=== PATIENT | female | born 1970 | race Caucasian/White ===

== ENCOUNTER 2018-08-02 15:35 | Inpatient (IN) | payer MEDICAID ==
[~2018-08-02] VITALS: Ht 165.1 cm; Wt 53.4 kg
[2018-08-02] MEDS ORDERED: LORazepam 2 MG/ML, 1ML IVPush ONE (16:00)
[2018-08-02] MEDS ORDERED: LORazepam 2 MG/ML, 1ML ONE (16:00)
[2018-08-02 16:13] LABS: BASOPHILS # (AUTO) 0.03 x10^3/uL (0-0.1); BASOPHILS % (AUTO) 0 % (0-1); EOSINOPHILS # (AUTO) 0.09 x10^3/uL (0-0.4); EOSINOPHILS % (AUTO) 1 % (1-7); LYMPHOCYTES # (AUTO) 3.37 x10^3/uL (1-3.4); LYMPHOCYTES % (AUTO) 46 % (22-44); MD NO; MEAN CORPUSCULAR HEMOGLOBIN 31.6 pg (27.0-34.8); MEAN CORPUSCULAR HGB CONC 33.4 g/dL (32.4-35.8); MEAN CORPUSCULAR VOLUME 94.5 fL (80-100); MONOCYTES # (AUTO) 0.43 x10^3/uL (0.2-0.8); MONOCYTES % (AUTO) 6 % (2-9); NEUTROPHILS # (AUTO) 3.34 x10^3/uL (1.8-6.8); NEUTROPHILS % (AUTO) 46 % (42-75); PLATELET COUNT 214 x10^3/uL (130-400); RED BLOOD COUNT 4.81 x10^6/uL (3.82-5.3); RED CELL DISTRIBUTION WIDTH 12.7 % (9.6-15.2)
[2018-08-02 16:23] LABS: ALANINE AMINOTRANSFERASE 28 U/L (12-78); ALBUMIN 4.3 g/dL (3.4-5.0); ANION GAP 9 mmol/L (5-15); CALCIUM 9.3 mg/dL (8.5-10.1); CHLORIDE 106 mmol/L (98-107); CREATININE 1.01 mg/dL (0.55-1.02)
[2018-08-02 16:27] LABS: ALKALINE PHOSPHATASE 58 U/L (45-117); BILIRUBIN,TOTAL 0.3 mg/dL (0.2-1.0); TOTAL PROTEIN 8.3 g/dL (6.4-8.2); TROPONIN I < 0.015 ng/mL (0.000-0.045)
[2018-08-02] MEDS ORDERED: ENALAPRILAT 1.25 MG/ML, 2ML IV ONE (17:00)
[2018-08-02] MEDS ORDERED: HYDROmorphone 2 MG/ML, 1ML IV ONE (17:00)
[2018-08-02] MEDS ORDERED: ENALAPRILAT 1.25 MG/ML, 1ML ONE (17:17)
[2018-08-02] MEDS ORDERED: HYDROmorphone 2 MG/ML, 1ML ONE ×2 (17:17→18:40)
--- NOTE | 2018-08-02 17:24 | NUR ---
Provided medication per EMAR for pain. Pt transported on gurney to [facility]. Both bedrails up for safety measures.
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
[2018-08-02] MEDS ORDERED: OMNIPAQUE 350 MG/ML, 100ML BOTTLE ONE (17:55)
[2018-08-02] MEDS ORDERED: METH10TA2 PO (18:49)
[2018-08-02] MEDS ORDERED: PREG75CA PO (18:49)
[2018-08-02] MEDS ORDERED: levothyroxine sodium PO (18:52)
[2018-08-02] MEDS ORDERED: ALPR2TAB2 PO (18:52)
[2018-08-02] MEDS ORDERED: METO25TA35 PO (18:52)
[2018-08-02] MEDS ORDERED: HYDROmorphone 1 MG/ML, 1ML INJ IV ONE (19:00)
--- NOTE | 2018-08-02 19:06 | NUR ---
Provided medication for pain to pt. Pt appreciative. Provided water to pt. Pt appreciative.
--- NOTE | 2018-08-02 19:25 | NUR ---
pt resting calmly, denies needs, monitors in place, call light within reach. awaiting room for admit
--- NOTE | 2018-08-02 19:54 | NUR ---
ATTEMPTED TO CALL REPORT, NO ANSWER AT THIS TIME
[2018-08-02] MEDS ORDERED: HYDROcodone/APAP 5/325 TABLET PO PRN (20:00)
[2018-08-02] MEDS ORDERED: IBUPROFEN 600 MG TABLET PO PRN (20:00)
[2018-08-02] MEDS ORDERED: ACETAMINOPHEN 325 MG TABLET PO PRN (20:00)
[2018-08-02] MEDS ORDERED: DOCUSATE 100 MG CAPSULE PO PRN (20:00)
[2018-08-02] MEDS: ONDANSETRON ODT 4 MG PO PRN (20:45)
[2018-08-02 21:06] VITALS: BP 163/97
[2018-08-02 22:05] VITALS: BP 170/82
[2018-08-02] MEDS: HYDROmorphone 2 MG/ML, 1ML IVPush PRN (22:59)
[2018-08-03 02:58] VITALS: BP 137/90
[2018-08-03] MEDS: HYDROmorphone 2 MG/ML, 1ML IVPush PRN ×2 (04:13→07:31)
[2018-08-03] MEDS: ONDANSETRON ODT 4 MG PO PRN (07:31)
[2018-08-03 08:00] VITALS: BP 157/92
[2018-08-03] MEDS ORDERED: CYCL-259 PO (11:52)
[2018-08-03] MEDS ORDERED: OXYC-302 PO (11:52)
[2018-08-03 12:50] VITALS: BP 160/91
== END 2018-08-03 14:10 | disposition home or self-care (01) | DRG 552 ==
LOC: ED 15:36 → EDIP 19:30 → 3NE 20:20 → DCLOUNGE 08-03 14:00
PROVIDERS: ADMIT Family Medicine; ATTEND Family Medicine
DX: M51.36 Other intervertebral disc degeneration, lumbar region (principal); F19.20 Other psychoactive substance dependence, uncomplicated; G89.29 Other chronic pain; F17.210 Nicotine dependence, cigarettes, uncomplicated; E03.9 Hypothyroidism, unspecified; Z85.41 Personal history of malignant neoplasm of cervix uteri; M79.7 Fibromyalgia; I10 Essential (primary) hypertension; Z80.8 Family history of malignant neoplasm of other organs or systems; Z88.0 Allergy status to penicillin; Z88.5 Allergy status to narcotic agent; Z79.899 Other long term (current) drug therapy; Q15.9 Congenital malformation of eye, unspecified; Z90.49 Acquired absence of other specified parts of digestive tract; Z82.0 Family history of epilepsy and other diseases of the nervous system
CPT/HCPCS: 36415; 71045; 71275; 72146; 72148; 74174; 80053; 83690; 84484; 85025; 93005; 96374; 96375; G0378; J1170; Q0162; Q9967; J2060

== ENCOUNTER 2018-10-14 15:08 | Inpatient (IN) | payer MEDICAID ==
[~2018-10-14] VITALS: Ht 165.1 cm; Wt 49.3 kg
[~2018-10-14 15:08] MED LIST: ALPR2TAB2 PO; CYCL-259 PO; METH10TA2 PO; METO25TA35 PO; OXYC-302 PO; PREG75CA PO; levothyroxine sodium PO
--- NOTE | 2018-10-14 15:28 | NUR ---
REQUESTED RECORDS FROM [facility].
[2018-10-14] MEDS ORDERED: SODIUM CHLORIDE FLUSH 10ML SYR IVF ONE (15:30)
[2018-10-14] MEDS ORDERED: LORazepam 1MG TABLET PO ONE (15:30)
[2018-10-14] MEDS ORDERED: METOPROLOL 1 MG/ML, 5ML IVPush ONE (15:30)
[2018-10-14] MEDS ORDERED: METOPROLOL 1 MG/ML, 5ML ONE (15:47)
[2018-10-14] MEDS ORDERED: LORazepam 1MG TABLET ONE (15:48)
[2018-10-14 15:49] LABS: BASOPHILS # (AUTO) 0.03 x10^3/uL (0-0.1); BASOPHILS % (AUTO) 0 % (0-1); EOSINOPHILS # (AUTO) 0.05 x10^3/uL (0-0.4); EOSINOPHILS % (AUTO) 1 % (1-7); LYMPHOCYTES # (AUTO) 2.86 x10^3/uL (1-3.4); LYMPHOCYTES % (AUTO) 40 % (22-44); MD NO; MEAN CORPUSCULAR HEMOGLOBIN 32.3 pg (27.0-34.8); MEAN CORPUSCULAR HGB CONC 33.4 g/dL (32.4-35.8); MEAN CORPUSCULAR VOLUME 96.4 fL (80-100); MEAN PLATELET VOLUME 9.5 fL (7.4-10.4); MONOCYTES # (AUTO) 0.26 x10^3/uL (0.2-0.8); MONOCYTES % (AUTO) 4 % (2-9); NEUTROPHILS % (AUTO) 55 % (42-75); PLATELET COUNT 239 x10^3/uL (130-400); RED BLOOD COUNT 4.68 x10^6/uL (3.82-5.3); RED CELL DISTRIBUTION WIDTH 12.9 % (9.6-15.2)
[2018-10-14 16:00] LABS: ALANINE AMINOTRANSFERASE 22 U/L (12-78); ALBUMIN 4.5 g/dL (3.4-5.0); ANION GAP 6 mmol/L (5-15); CALCIUM 9.4 mg/dL (8.5-10.1); CHLORIDE 107 mmol/L (98-107)
--- NOTE | 2018-10-14 16:04 | NUR ---
Received report from PRASHANTH Sommers. Assumed patient care. ABC assessment complete; medications given; second dose of clonidine declined by patient; provider informed. VSS; awaiting for medical records from [facility].
[2018-10-14 16:05] LABS: ALKALINE PHOSPHATASE 54 U/L (45-117); BILIRUBIN,TOTAL 0.5 mg/dL (0.2-1.0); FREE T4 (FREE THYROXINE) 1.37 ng/dL (0.76-1.46); TOTAL PROTEIN 8.7 g/dL (6.4-8.2); TROPONIN I < 0.015 ng/mL (0.000-0.045)
--- NOTE | 2018-10-14 16:26 | NUR ---
PAGED DR MESFIN CUELLAR FOR DR ROWLEY.
--- NOTE | 2018-10-14 16:32 | NUR ---
pt in bed at this time. tech in room to do repeat orthos with 5 minute interval. pt on cardiac, nibp,and o2 monitoring.
--- NOTE | 2018-10-14 16:34 | NUR ---
late note 1525. pt bib remsa after calling due to elevated bp. pt was seen and tx at [facility] 2 days prior. pt states she has been laying on her back for the last several years. c/o kessler, lower back shruthi that is chrionic, dizziness, and states she has an undiagnosed autonomic and metabolic disorder.
--- NOTE | 2018-10-14 17:04 | NUR ---
DR TOURE RETURNED CALL TO DR ROWLEY.
[2018-10-14] MEDS ORDERED: ENALAPRILAT 1.25 MG/ML, 2ML IVPush PRN (17:30)
[2018-10-14] MEDS ORDERED: ONDANSETRON 2MG/ML, 2ML IVPush PRN (17:30)
[2018-10-14] MEDS ORDERED: IBUPROFEN 600 MG TABLET PO PRN (17:30)
[2018-10-14] MEDS ORDERED: POLYETHYLENE GLYCOL 17 GM PACKET PO PRN (17:30)
[2018-10-14] MEDS ORDERED: hydrALAzine 20 MG/ML, 1ML IVPush PRN (17:30)
[2018-10-14] MEDS ORDERED: ACETAMINOPHEN 325 MG TABLET PO PRN (17:30)
[2018-10-14 18:06] VITALS: BP 139/84
[2018-10-14] MEDS: METHADONE 10 MG TABLET PO SCH (20:18)
[2018-10-14 20:41] VITALS: BP 140/86
[2018-10-15 00:56] VITALS: BP 113/67
[2018-10-15] MEDS ORDERED: LEVOTHYROXINE 75 MCG TABLET PO SCH (06:00)
[2018-10-15] MEDS: METHADONE 10 MG TABLET PO SCH (08:44)
[2018-10-15 08:55] VITALS: BP 161/92
[2018-10-15] MEDS ORDERED: LISINOPRIL 10 MG TABLET PO SCH (09:00)
[2018-10-15] MEDS ORDERED: METH10TA2 PO (09:37)
[2018-10-15 09:51] VITALS: BP 159/80
[2018-10-15] MEDS ORDERED: ALPR1TAB2 PO (11:15)
[2018-10-15] MEDS ORDERED: LEVO100T5 PO (11:19)
[2018-10-15 13:23] VITALS: BP 152/89
[2018-10-15] MEDS ORDERED: METHADONE 5 MG TABLET PO ONE (13:30)
[2018-10-15] MEDS ORDERED: METHADONE 10 MG TABLET ONE (13:44)
[2018-10-15] MEDS ORDERED: PROP40TA PO (14:39)
[2018-10-15 19:07] VITALS: BP 156/67
[2018-10-15] MEDS ORDERED: METHADONE 10 MG TABLET PO SCH (21:00)
[2018-10-16] MEDS ORDERED: LEVOTHYROXINE 100 MCG TABLET PO SCH (06:00)
[2018-10-21] MEDS ORDERED: LISI-170 PO (17:29)
== END 2018-10-15 19:25 | disposition home or self-care (01) | DRG 305 ==
LOC: ED 16:23 → EDIP 16:40 → 4EST 18:03
PROVIDERS: ADMIT Student in an Organized Health Care Education/Training Program; ATTEND Student in an Organized Health Care Education/Training Program
DX: I16.0 Hypertensive urgency (principal); F19.20 Other psychoactive substance dependence, uncomplicated; E03.9 Hypothyroidism, unspecified; F17.200 Nicotine dependence, unspecified, uncomplicated; F41.1 Generalized anxiety disorder; F43.10 Post-traumatic stress disorder, unspecified; Z88.6 Allergy status to analgesic agent; Z88.0 Allergy status to penicillin; Z88.2 Allergy status to sulfonamides; G89.4 Chronic pain syndrome; I10 Essential (primary) hypertension; I25.2 Old myocardial infarction; M79.7 Fibromyalgia; R53.82 Chronic fatigue, unspecified; R56.9 Unspecified convulsions; Z82.49 Family history of ischemic heart disease and other diseases of the circulatory system; Z85.41 Personal history of malignant neoplasm of cervix uteri; Z90.49 Acquired absence of other specified parts of digestive tract
CPT/HCPCS: 36415; 71045; 80053; 81050; 82384; 82570; 84439; 84443; 84484; 85025; 93005; 96374; G0378

== ENCOUNTER 2018-10-19 01:06 | Emergency (ER) | payer MEDICAID ==
[~2018-10-19] VITALS: Ht 165.1 cm; Wt 52.2 kg
[~2018-10-19 01:06] MED LIST changes: +ALPR1TAB2 PO; +LEVO100T5 PO; +PROP40TA PO
[2018-10-19] MEDS ORDERED: LORazepam 2 MG/ML, 1ML IVPush ONE (01:30)
[2018-10-19] MEDS ORDERED: NITROGLYCERIN OINT 2%, 1GM TP ONE ×2 (01:30→01:43)
[2018-10-19] MEDS ORDERED: SODIUM CHLORIDE FLUSH 10ML SYR IVF ONE (01:30)
[2018-10-19] MEDS ORDERED: hydrALAzine 20 MG/ML, 1ML IV ONE (01:30)
[2018-10-19 01:35] LABS: BASOPHILS # (AUTO) 0.04 x10^3/uL (0-0.1); BASOPHILS % (AUTO) 1 % (0-1); EOSINOPHILS # (AUTO) 0.14 x10^3/uL (0-0.4); EOSINOPHILS % (AUTO) 2 % (1-7); LYMPHOCYTES # (AUTO) 3.61 x10^3/uL (1-3.4); LYMPHOCYTES % (AUTO) 45 % (22-44); MD NO; MEAN CORPUSCULAR HEMOGLOBIN 32.2 pg (27.0-34.8); MEAN CORPUSCULAR HGB CONC 33.5 g/dL (32.4-35.8); MEAN PLATELET VOLUME 9.5 fL (7.4-10.4); MONOCYTES # (AUTO) 0.59 x10^3/uL (0.2-0.8); MONOCYTES % (AUTO) 7 % (2-9); NEUTROPHILS # (AUTO) 3.62 x10^3/uL (1.8-6.8); NEUTROPHILS % (AUTO) 45 % (42-75); PLATELET COUNT 236 x10^3/uL (130-400); RED BLOOD COUNT 4.84 x10^6/uL (3.82-5.3); RED CELL DISTRIBUTION WIDTH 12.6 % (9.6-15.2)
[2018-10-19] MEDS ORDERED: hydrALAzine 20 MG/ML, 1ML ONE (01:42)
[2018-10-19 01:43] LABS: ALBUMIN 4.5 g/dL (3.4-5.0); ANION GAP 7 mmol/L (5-15); CALCIUM 9.6 mg/dL (8.5-10.1); CHLORIDE 105 mmol/L (98-107); CREATININE 0.92 mg/dL (0.55-1.02)
[2018-10-19] MEDS ORDERED: LORazepam 2 MG/ML, 1ML ONE (01:43)
[2018-10-19 01:47] LABS: TROPONIN I < 0.015 ng/mL (0.000-0.045)
[2018-10-19 03:02] VITALS: BP 123/99
[2018-10-21] MEDS ORDERED: LISI-170 PO (17:29)
== END 2018-10-19 03:04 | disposition home or self-care (01) ==
LOC: ED 02:11
DX: I10 Essential (primary) hypertension (principal); M79.10 Myalgia, unspecified site; F17.200 Nicotine dependence, unspecified, uncomplicated; F41.1 Generalized anxiety disorder
CPT/HCPCS: 36415; 80048; 82040; 84484; 85025; 93005; 96374; 96375; 99284; J0360; J2060

== ENCOUNTER 2018-10-21 17:17 | Emergency (ER) | payer MEDICAID ==
[~2018-10-21] VITALS: Ht 165.1 cm; Wt 49.0 kg
[2018-10-21 20:12] VITALS: BP 139/87
== END 2018-10-21 20:14 | disposition home or self-care (01) ==
LOC: ED 19:48
DX: M54.6 Pain in thoracic spine (principal); G89.29 Other chronic pain; I10 Essential (primary) hypertension; F41.1 Generalized anxiety disorder; F17.200 Nicotine dependence, unspecified, uncomplicated
CPT/HCPCS: 36415; 80048; 82040; 84484; 85025; 93005; 99284

== ENCOUNTER 2019-02-24 15:19 | Emergency (ER) | payer MEDICAID ==
[~2019-02-24] VITALS: Ht 165.1 cm; Wt 50.9 kg
[~2019-02-24 15:19] MED LIST changes: +LISI-170 PO
[2019-02-24] MEDS ORDERED: METOCLOPRAMIDE 5 MG/ML, 2ML ONE (15:45)
[2019-02-24] MEDS ORDERED: DIPHENHYDRAMINE 50 MG/ML, 1ML ONE (15:45)
[2019-02-24] MEDS ORDERED: MORPHINE SULFATE 4 MG/ML, 1ML ONE (15:46)
[2019-02-24] MEDS ORDERED: MORPHINE SULFATE 4 MG/ML, 1ML IVPush ONE (16:00)
[2019-02-24] MEDS ORDERED: METOCLOPRAMIDE 5 MG/ML, 2ML IVPush ONE (16:00)
[2019-02-24] MEDS ORDERED: DIPHENHYDRAMINE 50 MG/ML, 1ML IVPush ONE (16:00)
[2019-02-24 16:10] LABS: BASOPHILS # (AUTO) 0.04 x10^3/uL (0-0.1); BASOPHILS % (AUTO) 1 % (0-1); EOSINOPHILS % (AUTO) 1 % (1-7); LYMPHOCYTES # (AUTO) 3.55 x10^3/uL (1-3.4); LYMPHOCYTES % (AUTO) 50 % (22-44); MD NO; MEAN CORPUSCULAR HGB CONC 33.3 g/dL (32.4-35.8); MEAN CORPUSCULAR VOLUME 96.4 fL (80-100); MEAN PLATELET VOLUME 10.3 fL (7.4-10.4); MONOCYTES # (AUTO) 0.42 x10^3/uL (0.2-0.8); MONOCYTES % (AUTO) 6 % (2-9); NEUTROPHILS # (AUTO) 2.99 x10^3/uL (1.8-6.8); NEUTROPHILS % (AUTO) 42 % (42-75); PLATELET COUNT 205 x10^3/uL (130-400); RED BLOOD COUNT 4.64 x10^6/uL (3.82-5.3); RED CELL DISTRIBUTION WIDTH 12.6 % (9.6-15.2)
[2019-02-24 16:16] LABS: ALANINE AMINOTRANSFERASE 31 U/L (12-78); ALBUMIN 4.2 g/dL (3.4-5.0); ANION GAP 4 mmol/L (5-15); CALCIUM 9.1 mg/dL (8.5-10.1); CHLORIDE 109 mmol/L (98-107); CREATININE 0.82 mg/dL (0.55-1.02)
[2019-02-24 16:19] LABS: BILIRUBIN,TOTAL 0.4 mg/dL (0.2-1.0); TOTAL PROTEIN 8.2 g/dL (6.4-8.2); TROPONIN I < 0.015 ng/mL (0.000-0.045)
--- NOTE | 2019-02-24 16:21 | NUR ---
IV ESTABLISHED AND PT MEDICATED PER MAR, PT ON MONITOR. PARTNER AT BEDSIDE. NO NEEDS A T THIS TIME, CALL LIGHT WITHIN REACH.
[2019-02-24 16:23] LABS: ALKALINE PHOSPHATASE 61 U/L (45-117)
[2019-02-24 17:29] VITALS: BP 157/107
== END 2019-02-24 17:31 | disposition home or self-care (01) ==
LOC: ED 17:25
DX: R07.9 Chest pain, unspecified (principal); I10 Essential (primary) hypertension; I16.9 Hypertensive crisis, unspecified; M54.9 Dorsalgia, unspecified
CPT/HCPCS: 36415; 71045; 80053; 84484; 85025; 93005; 96374; 96375; 99284; J1200; J2270; J2765

== ENCOUNTER 2019-04-01 18:21 | Emergency (ER) | payer MEDICAID ==
[~2019-04-01] VITALS: Ht 165.1 cm; Wt 53.0 kg
[2019-04-01 18:30] VITALS: BP 175/104
[2019-04-01] MEDS ORDERED: HYDR-3341 PO (18:36)
[2019-04-01] MEDS ORDERED: CARV12.52 PO (18:36)
--- NOTE | 2019-04-01 18:39 | NUR ---
PT BIB EMS W MULTIPLE CO INCLUDING CHEST PAIN, TACHYCARDIA, HTN, BACK PAIN, ANXIETY SYMPTOMS. PT STATES SHE EXPERIENCES THESE SYMPTOMS ALL THE TIME, HAS SEEN MULTIPLE DOCTORS, PLACED ON MEDS, AND NO ACTUAL DIAGNOSIS. PT IS ANXIOUS, HR ON APPLE WATCH RANGES FROM 80-130, WHICH PROCEES W PAIN AND ANXIETY SYMPTOMS. PT IS TEARFUL. WAITER/WAITRESS ECONOMY CLASS APPLIED. VS STABLE.
== END 2019-04-01 19:49 ==
LOC: ED 19:09
DX: R00.2 Palpitations (principal); R00.0 Tachycardia, unspecified; I10 Essential (primary) hypertension
CPT/HCPCS: 93005; 99283